=== PATIENT | female | born 1955 | race Caucasian/White ===

== ENCOUNTER 2016-10-07 18:21 | Emergency (ER) | payer MEDICAID, MEDICARE ==
[~2016-10-07] VITALS: Ht 154.9 cm; Wt 110.0 kg
[~2016-10-07 18:21] MED LIST: ASPI81TA82 PO; DULO20 PO; HYDR-2768 PO; HYDR10TA16 PO; LEVO50TA4 PO; LISI-363 PO
[2016-10-07 18:25] VITALS: BP 183/87; PULSE 78; RESP 20; TEMP 97.3; O2SAT 98
--- NOTE | 2016-10-07 18:56 | PD ---
HPI Chief Complaint: Injury Time Seen by Provider: 18:48 Travel History International Travel<30 days: No Contact w/Intl Traveler<30days: No Traveled to known affect area: No History of Present Illness HPI 61-year-old female presents to the emergency Department with complaint of left lateral ankle pain 6 months. Denies new or recent injury. She said she injured it somehow 6 months ago and it has never gotten better she reports swelling and pain. Pain is constant. Pain is worse with walking and weightbearing. Pain is also aggravated with elevating the foot. Denies paresthesias, loss of sensation to the affected extremity. Denies fever, chills , nausea, vomiting. Has tried taking Motrin with no relief of pain. No known allergies. History of hypertension. No other modifying factors or associated signs and symptoms. PFSH Past Medical History Anxiety: Yes Depression: Yes Heart Rhythm Problems: Yes Cardiac Catheterization: Yes Cardiovascular Problems: Yes High Cholesterol: Yes Congestive Heart Failure: Yes (new diag from prev admission 11/24/15) Diabetes: No Gastrointestinal Disorders: Yes (GALLSTONES) Headaches: Yes Hypertension: Yes Inguinal Hernia: Yes Respiratory: Yes (ASTHMA) Pancreatitis: Yes Sleep Apnea: Yes Thyroid Disease: Yes ?: Not : 3 Para: 2 Tubal Ligation: Yes Past Surgical History Joint Replacement: Yes (BILATERAL KNEE REPLACEMENT) Other Surgery: Yes (SINUS SURGERY) Social History Alcohol Use: No Tobacco Use: No Substance Use: No Allergies-Medications (Allergen,Severity, Reaction): Coded Allergies: No Known Allergies (Unverified , 10/07/16) Reported Meds & Prescriptions Reported Meds & Active Scripts Active Hctz (Hydrochlorothiazide) 25 Mg Tab 25 Mg PO DAILY Levothyroxine 50 mcg (Levothyroxine Sodium) 50 Mcg Tab 50 Mcg PO DAILY Reported Cymbalta (Duloxetine HCl) 20 Mg Cap 20 Mg PO DAILY Aspir-81 (Aspirin) 81 Mg Tab 81 Mg PO DAILY Lortab 10/500 (Acetaminophen/Hydrocodone Bitart) 10 Mg/500 Mg Tab 1 Tab PO Q6HPRN FOR PAIN Lisinopril 20 mg (Lisinopril) 20 Mg Tab 20 Mg PO DAILY Review of Systems Except as stated in HPI: all other systems reviewed are Neg Physical Exam Narrative GENERAL: Well-nourished, well-developed female patient, in no acute distress SKIN: Warm and dry. HEAD: Atraumatic. Normocephalic. EYES: Pupils equal and round. No scleral icterus. No injection or drainage. ENT: Mucosa pink and moist. Airway patent. NECK: Trachea midline. CARDIOVASCULAR: Regular rate. RESPIRATORY: No accessory muscle use. MUSCULOSKELETAL: Left ankle with point tenderness on palpation to the lateral malleolar zone; ankle is with mild edema and without erythema; no obvious deformity. Left lower extremity supple and non-tense with 2+ pedal pulses and sensory intact and without erythema or edema. No obvious deformities. No clubbing. No cyanosis. No edema. NEUROLOGICAL: Awake and alert. Oriented 3. No obvious cranial nerve deficits. Motor grossly within normal limits. Normal speech. PSYCHIATRIC: Appropriate mood and affect; insight and judgment normal. Data Data Last Documented VS Vital Signs Date Time Temp Pulse Resp B/P Pulse Ox O2 Delivery O2 Flow Rate FiO2 10/07/16 18:25 97.3 78 20 183/87 98 MDM Medical Decision Making Medical Screen Exam Complete: Yes Emergency Medical Condition: Yes Medical Record Reviewed: Yes Differential Diagnosis Ankle pain, heel spurs, strain Narrative Course 61-year-old female with left ankle pain 6 months after an apparent injury. Denies new or recent injury. Has had continued pain without improvement after injury 6 months ago. Left lower x-ray supple and non-tense with 2+ pedal pulse and sensory intact without erythema or edema. Left ankle x-ray ordered. 1900: Dennis Magaña, PAC, assumed patient care at this time. Report given. See his note for patient disposition. Elizabeth Wilhelm Oct 07, 2016 18:55
[2016-10-07] MEDS ORDERED: DICL75TA PO (19:19)
--- NOTE | 2016-10-07 19:21 | RADRPT ---
EXAM DATE/TIME: 10/07/2016 19:04 [facility] COMPARISON: No previous studies available for comparison. INDICATIONS : Left ankle pain, no trauma. MEDICAL HISTORY : Hypertension. Congestive heart failure. Asthma. SURGICAL HISTORY : None. ENCOUNTER: Initial ACUITY: 2 months PAIN SCORE: 8/10 LOCATION: Left lateral ankle. FINDINGS: There is diffuse soft tissue swelling/subcutaneous edema. No radiopaque foreign body. There is no fra cture or subluxation seen in the left ankle. Mild to moderate osteoarthritis noted of the ankle joint and the subtalar joint. Large posterior process of the talus. There is also a moderate to large heel spur. Moderate-sized ent hesophyte seen of the Achilles insertion. CONCLUSION: 1. Nonspecific soft tissue swelling. No fracture or other acute bony abnormality. 2. Chronic findings as above. Tom Valdez MD on October 07, 2016 at 19:18 Board Certified Radiologist. This report was verified electronically.
--- NOTE | 2016-10-07 19:21 | PD ---
Physical Exam Date Seen by Provider: Oct 07, 2016 Time Seen by Provider: 19:19 Data Data Last Documented VS Vital Signs Date Time Temp Pulse Resp B/P Pulse Ox O2 Delivery O2 Flow Rate FiO2 10/07/16 18:25 97.3 78 20 183/87 98 Orders Ankle, Complete ([id number]) (10/07/16 18:48) Splint Or Brace Apply/Monitor (10/07/16 19:18) Crutches (10/07/16 19:18) MDM Medical Record Reviewed: Yes Supervised Visit with GILLES: No Interpretation(s) Left ankle: Negative for fracture. Positive degenerative changes Differential Diagnosis MDM: High Differential diagnoses: Fracture, sprain, strain, dislocation, contusion, neurovascular injury Narrative Course This is left ankle sprain, arthritis Saqib wrap, crutches and diclofenac Diagnosis Primary Impression: Left ankle sprain Qualified Code: S93.402A - Sprain of left ankle, unspecified ligament, initial encounter Additional Impression: Osteoarthritis Qualified Code: M19.079 - Primary osteoarthritis of ankle, unspecified laterality Patient Instructions: General Instructions Additional Instruction: Rest. Elevation. Ice packs for the next 3 days. Saqib wrap and crutches. No weight-bearing and then progress to weight-bearing as tolerated. Medications as directed Follow-up with an orthopedist or your doctor in one week. Return to the ER if any problems Med/Other Pt SpecificInfo: Prescription(s) given Scripts Diclofenac Sodium DR 75 Mg Tabdr75 Mg PO BID #20 TAB Prov:Russell Haley MD 10/07/16 Disposition: 01 DISCHARGE HOME Condition: Stable Flaquito Malcolm Oct 07, 2016 19:21
== END 2016-10-07 19:30 | disposition home or self-care (01) ==
LOC: NEPB 18:21
DX: S93.402A Sprain of unspecified ligament of left ankle, initial encounter (principal); F41.8 Other specified anxiety disorders; E78.00 Pure hypercholesterolemia, unspecified; I50.9 Heart failure, unspecified; I10 Essential (primary) hypertension; M19.079 Primary osteoarthritis, unspecified ankle and foot; X58.XXXD Exposure to other specified factors, subsequent encounter
CPT/HCPCS: 73610; 99283; E0113

== ENCOUNTER 2016-10-12 22:29 | Emergency (ER) | payer MEDICAID ==
[~2016-10-12] VITALS: Ht 154.9 cm; Wt 109.5 kg
[~2016-10-12 22:29] MED LIST changes: -ASPI81TA82 PO; +DICL75TA PO; -DULO20 PO; -HYDR-2768 PO; -HYDR10TA16 PO; -LEVO50TA4 PO; -LISI-363 PO
[2016-10-12 22:31] VITALS: BP 168/80; PULSE 107; RESP 20; TEMP 98.1; O2SAT 97
--- NOTE | 2016-10-12 22:55 | PD ---
HPI Chief Complaint: Anxiety Time Seen by Provider: 22:55 Travel History International Travel<30 days: No Contact w/Intl Traveler<30days: No Traveled to known affect area: No History of Present Illness HPI 61 year-old female history of hypertension, anxiety, depression, presents to the emergency department requesting a refill of her Cymbalta. Patient states that she ran out 3 days ago and has not had a pill since then. She reports feeling increasingly anxious. She has had headaches. She has felt tremulous. She states that since stopping the medication she does not feel like herself. Denies any head trauma. No focal deficits weakness. No chest or tightness. No other symptoms to report. Patient does state that she has an appointment with her primary care provider tomorrow and if weakly give her something to get through the night, she would greatly appreciate it. PFSH Past Medical History Asthma: Yes Anxiety: Yes Depression: Yes Heart Rhythm Problems: Yes Cardiac Catheterization: Yes Cardiovascular Problems: Yes High Cholesterol: Yes Congestive Heart Failure: Yes (new diag from prev admission 11/24/15) Diabetes: No Diminished Hearing: No Gastrointestinal Disorders: Yes (GALLSTONES) Headaches: Yes Hypertension: Yes Inguinal Hernia: Yes Respiratory: Yes (ASTHMA) Pancreatitis: Yes Sleep Apnea: Yes Thyroid Disease: Yes : 3 Para: 2 Tubal Ligation: Yes Past Surgical History Joint Replacement: Yes (BILATERAL KNEE REPLACEMENT) Other Surgery: Yes (SINUS SURGERY) Social History Alcohol Use: No Tobacco Use: No Substance Use: No Allergies-Medications (Allergen,Severity, Reaction): Coded Allergies: No Known Allergies (Unverified , 10/12/16) Reported Meds & Prescriptions Reported Meds & Active Scripts Active Cymbalta DR (Duloxetine HCl) 30 Mg Capdr 30 Mg PO DAILY Diclofenac Sodium DR (Diclofenac Sodium) 75 Mg Tabdr 75 Mg PO BID Review of Systems Except as stated in HPI: all other systems reviewed are Neg Physical Exam Narrative GENERAL: Well-nourished female patient, ambulatory no acute distress SKIN: Warm and dry. HEAD: Atraumatic. Normocephalic. EYES: Pupils equal and round. No scleral icterus. No injection or drainage. ENT: No nasal bleeding or discharge. Mucous membranes pink and moist. NECK: Trachea midline. No JVD. CARDIOVASCULAR: Regular rate and rhythm. No murmur appreciated. RESPIRATORY: No accessory muscle use. Clear to auscultation. Breath sounds equal bilaterally. GASTROINTESTINAL: Abdomen soft, non-tender, nondistended. Hepatic and splenic margins not palpable. MUSCULOSKELETAL: No obvious deformities. No clubbing. No cyanosis. No edema. NEUROLOGICAL: Awake and alert. No obvious cranial nerve deficits. Motor grossly within normal limits. Normal speech. Data Data Last Documented VS Vital Signs Date Time Temp Pulse Resp B/P Pulse Ox O2 Delivery O2 Flow Rate FiO2 10/12/16 22:31 98.1 107 20 168/80 97 Room Air Orders Dullewis Horta (Cymbalta Dr) (10/12/16 23:00) Electrocardiogram (10/12/16 ) MDM Medical Decision Making Medical Screen Exam Complete: Yes Emergency Medical Condition: Yes Medical Record Reviewed: Yes Differential Diagnosis SSRI withdrawal versus liquid abnormality versus intracranial etiology versus anxiety Narrative Course 61-year-old female presents to emergency department for evaluation and medication refill. Patient appears without distress. There are no focal deficits or weakness. Patient was given a dose of her Cymbalta here and I have offered to give her a prescription outpatient. I have discussed the patient other possible etiologies of her symptoms besides stopping the medication. I have advised that before with CT imaging of the brain. Patient states that she truly believes this is from stopping her medication and does not want to go for CT right now. She agrees to return immediately with any acute worsening of symptoms. Patient is competent. She has a daughter at bedside. I'm comfortable sending her home with prescription for Cymbalta to return immediately with any worsening of symptoms. EKG was done with normal sinus rhythm of 73 bpm. Diagnosis Primary Impression: On SSRI therapy Additional Impressions: Withdrawal complaint Medication refill Referrals: Primary Care Physician Patient Instructions: Depression (ED), General Instructions Additional Instructions: It is important that you keep your appointment with your primary care provider and keep current on your medications Do not ever stop your Cymbalta or other SSRI abruptly Return immediately to the emergency department with any acute worsening of symptoms Med/Other Pt SpecificInfo: Prescription(s) given Scripts Duloxetine (Cymbalta DR)30 Mg Capdr30 Mg PO DAILY #30 CAP Ref 0 Prov:Sandra Tillman 10/12/16 Disposition: DISCHARGE HOME Condition: Stable Sandra Tillman Oct 12, 2016 22:55
[2016-10-12] MEDS ORDERED: DULoxetine HCl DR 30 MG CAP PO ONE (23:00)
[2016-10-12] MEDS ORDERED: CYMB30CA PO (23:17)
--- NOTE | 2016-10-13 13:36 | EKG ---
Date Performed: 10/12/2016 Time Performed: 23:05:42 PTAGE: 61 years EKG: Sinus rhythm NORMAL ECG Compared to prior tracing no significant change PREVIOUS TRACING 12/31/2015 07.31.14 DOCTOR: Aaron Jones Interpretating Date/Time 10/13/2016 13:34:26
== END 2016-10-12 23:54 | disposition home or self-care (01) ==
LOC: NEPA 22:29
DX: F41.9 Anxiety disorder, unspecified (principal); I10 Essential (primary) hypertension; Z76.0 Encounter for issue of repeat prescription
CPT/HCPCS: 93005

== ENCOUNTER 2017-02-15 23:24 | Emergency (ER) | payer MEDICAID ==
[~2017-02-15] VITALS: Ht 154.9 cm; Wt 110.0 kg
[~2017-02-15 23:24] MED LIST changes: +CYMB30CA PO
[2017-02-15 23:38] VITALS: BP 151/66; PULSE 95; RESP 18; TEMP 98.3; O2SAT 98
[2017-02-15] MEDS ORDERED: CYMB30CA PO (23:51)
[2017-02-15] MEDS ORDERED: LISI-515 PO (23:51)
[2017-02-15] MEDS ORDERED: ASPI81CH CHEW (23:51)
[2017-02-15] MEDS ORDERED: subutex PO (23:51)
[2017-02-15] MEDS ORDERED: PROZ20CA11 PO (23:51)
[2017-02-16] MEDS ORDERED: SODIUM CHLORIDE 0.9% FLUSH 10 ML FLUSH IVF PRN
[2017-02-16 00:10] VITALS: BP 156/77; RESP 16; O2SAT 97
--- NOTE | 2017-02-16 00:19 | RADRPT ---
EXAM DATE/TIME: 02/16/2017 00:16 [facility] COMPARISON: CHEST SINGLE AP, December 31, 2015, 1:43. INDICATIONS : Shortness of breath MEDICAL HISTORY : Hypertension. Congestive heart failure. SURGICAL HISTORY : Angioplasty. Tubal ligation. Total knee replacement, left. ENCOUNTER: Initial ACUITY: 1 day PAIN SCORE: 8/10 LOCATION: Bilateral chest FINDINGS: A single view of the chest demonstrates the lungs to be symmetrically aerated without evidence of mas s, infiltrate or effusion. The cardiomediastinal contours are unremarkable. Osseous structures are intact. CONCLUSION: No acute disease. Alan Mai MD on February 16, 2017 at 0:18 Board Certified Radiologist. This report was verified electronically.
--- NOTE | 2017-02-16 00:30 | RADRPT ---
EXAM DATE/TIME: 02/16/2017 00:19 [facility] COMPARISON: No previous studies available for comparison. INDICATIONS : Tingling right side of body; hypertensive headache. RADIATION DOSE: 40.38 CTDIvol (mGy) MEDICAL HISTORY : Hypertension. Cardiovascular disease Pancreatitis.Asthma. SURGICAL HISTORY : Tubal ligation. Right knee surgery. ENCOUNTER: Initial ACUITY: 1 day PAIN SCALE: 0/10 LOCATION: cranial TECHNIQUE: Multiple contiguous axial images were obtained of the head. Using automated exposure control and adj ustment of the mA and/or kV according to patient size, radiation dose was kept as low as reasonably a chievable to obtain optimal diagnostic quality images. DICOM format image data is available electro nically for review and comparison. FINDINGS: CEREBRUM: The ventricles are normal for age. No evidence of midline shift, mass lesion, hemorrhage or acute in farction. No extra-axial fluid collections are seen. POSTERIOR FOSSA: The cerebellum and brainstem are intact. The 4th ventricle is midline. The cerebellopontine angle i s unremarkable. EXTRACRANIAL: The visualized portion of the orbits is intact. SKULL: The calvaria is intact. No evidence of skull fracture. CONCLUSION: No acute intracranial disease. Alan Mai MD on February 16, 2017 at 0:28 Board Certified Radiologist. This report was verified electronically.
[2017-02-16 00:39] LABS: AUTOMATED NEUTROPHIL # 5.2 TH/MM3 (1.8-7.7); BASOPHIL # 0.1 TH/MM3 (0-0.2); BASOPHIL % 0.7 % (0.0-2.0); EOSINOPHIL # 0.6 TH/MM3 (0-0.4); EOSINOPHIL % 6.2 % (0.0-4.0); HEMATOCRIT 32.1 % (35.0-46.0); HEMO FLAGS DIFF FINAL; LYMPH % 29.8 % (9.0-44.0); LYMPHOCYTE # 2.7 TH/MM3 (1.0-4.8); MEAN CELL VOLUME 75.1 FL (80.0-100.0); MEAN CORPUSCULAR HGB CONC 31.9 % (32.0-36.0); NEUT % 57.3 % (16.0-70.0); PLATELET COUNT 239 TH/MM3 (150-450); RED BLOOD COUNT 4.28 MIL/MM3 (4.00-5.30); RED CELL DISTRIBUTION WIDTH 15.9 % (11.6-17.2); WHITE BLOOD COUNT 9.1 TH/MM3 (4.0-11.0)
[2017-02-16 00:50] LABS: APTT (PATIENT) 28.4 SEC (24.3-30.1); INTERNATIONAL NORMALIZED RATIO 0.9 RATIO; PROTHROMBIN TIME - PATIENT 10.4 SEC (9.8-11.6)
[2017-02-16 01:02] LABS: ALT (GPT) 37 U/L (10-53); ANION GAP 4 MEQ/L (5-15); AST (GOT) 25 U/L (15-37); BICARBONATE 30.1 MEQ/L (21.0-32.0); BLOOD UREA NITROGEN 23 MG/DL (7-18); CHLORIDE 103 MEQ/L (98-107); GLOMERULAR FILTRATION RATE 52 ML/MIN (>89); POTASSIUM 3.8 MEQ/L (3.5-5.1); SODIUM (NA) 137 MEQ/L (136-145)
[2017-02-16 01:06] LABS: ALKALINE PHOSPHATASE 116 U/L (45-117); CREATINE KINASE 158 U/L (26-192); TOTAL BILIRUBIN ADULT 0.2 MG/DL (0.2-1.0)
--- NOTE | 2017-02-16 01:13 | PD ---
HPI Chief Complaint: Chest Pain Time Seen by Provider: 23:57 Travel History International Travel<30 days: No Contact w/Intl Traveler<30days: No Traveled to known affect area: No History of Present Illness HPI The patient is a 61 year old female who presents to the [facility] [address] emergency department with a history of awakening shortly after falling asleep with a burning sensation in her lower abdomen/groin area. She reports that she got up and the pain seemed to radiate up into her chest. She reports that she also had 2 episodes of indigestion today which is new for her. The patient denies having any prior history of coronary artery disease. She does have a history of a heart murmur and mitral valve prolapse. She reports that she underwent a heart catheterization approximately a year ago at [facility] that showed no evidence of blockages. The patient reports that she checked her blood pressure when she began to have these symptoms and noted that it was 238/108 with a pulse of 138. She reports feeling anxious, therefore she called ambulance services. The patient denies having any other symptoms at this time. She reports that the chest pain and abdominal pain has resolved. She reports on review of systems that 2 weeks ago she did start having urinary frequency and urgency. She denies having any dysuria. The patient reports that she has been dealing with some left foot pain from a prior injury, as well as arthritic pain in her hips. She reports that she was recently prescribed a month ago ibuprofen 800 mg. She reports that she has been taking this 3 times per day. She has otherwise been taking her blood pressure medication as prescribed. The patient denies any recent fevers, cough, congestion, neck pain, vomiting, diarrhea, weakness of her extremities, facial droop, difficulty with word finding ability, dizziness, or vision changes. The patient reports that she did have some tingling in her extremities and she felt anxious, however this resolved. [facility] Past Medical History Narrative Medical The patient's past medical history is significant for MVP, heart cath negative for blockages [address] [facility], anxiety disorder, hypertension, arthritis for pain (Ibuprofen 800mg tid)- for a month, history of hyperlipidemia , asthma, pancreatitis, depression, hypothyroid disorder, history of gallstones. PCP: Dr. Barnes. Hx Anticoagulant Therapy: Yes (2 baby aspirin BID) Asthma: Yes Anxiety: Yes Depression: Yes Heart Rhythm Problems: Yes Cardiac Catheterization: Yes Cardiovascular Problems: Yes (HTN, Mitral valve prolapse) High Cholesterol: Yes Congestive Heart Failure: Yes (new diag from prev admission 11/24/15) Diabetes: No Diminished Hearing: No Gastrointestinal Disorders: Yes (GALLSTONES) Headaches: Yes Hypertension: Yes Inguinal Hernia: Yes Respiratory: Yes (Asthma) Pancreatitis: Yes Sleep Apnea: Yes Thyroid Disease: Yes ?: Not : 3 Para: 2 Tubal Ligation: Yes Past Surgical History Narrative Surgical The patient's past surgical history is significant for sinus surgery, bilateral tubal ligation, cardiac catheterization without any stenting or angioplasty, bilateral knee replacements. Joint Replacement: Yes (BILATERAL KNEE REPLACEMENT) Other Surgery: Yes (SINUS SURGERY) Social History Alcohol Use: No Tobacco Use: No Substance Use: No Allergies-Medications (Allergen,Severity, Reaction): Coded Allergies: No Known Allergies (Unverified , 10/12/16) Reported Meds & Prescriptions Reported Meds & Active Scripts Active Macrobid (Nitrofurantoin Monoh/Nitrofur Macro) 100 Mg Cap 100 Mg PO BID 7 Days Famotidine 20 Mg Tab 20 Mg PO BID Cymbalta DR (Duloxetine HCl) 30 Mg Capdr 30 Mg PO DAILY Diclofenac Sodium DR (Diclofenac Sodium) 75 Mg Tabdr 75 Mg PO BID Reported Aspirin 81 Mg Chew 162 Mg CHEW BID Cymbalta DR (Duloxetine HCl) 30 Mg Capdr 30 Mg PO EVERY OTHER DAY [subutex] 8.2 Mg PO DAILY Prozac (Fluoxetine HCl) 20 Mg Cap 20 Mg PO BID Lisinopril 20 Mg Tab 20 Mg PO BID Review of Systems Except as stated in HPI: all other systems reviewed are Neg General / Constitutional: No: Fever Eyes: No: Visual changes HENT: Positive: Headaches, No: Neck Stiffness, Neck Pain Cardiovascular: Positive: Chest Pain or Discomfort Respiratory: No: Shortness of Breath Gastrointestinal: Positive: Abdominal Pain, Indigestion, No: Nausea, Vomiting , Diarrhea, Hematochezia, Changes in Bowel Habits, Loss of Appetite Genitourinary: Positive: Urgency, Frequency, No: Dysuria Musculoskeletal: No: Pain Skin: No Rash Neurologic: Positive: Headache, Paresthesia, No: Weakness, Focal Abnormalities , Change in Mentation, Slurred Speech Psychiatric: No: Depression Endocrine: No: Polydipsia Hematologic/Lymphatic: No: Easy Bruising Physical Exam Narrative General: The patient is a well-developed well-nourished female in no acute distress. Head and Neck exam: Head is normocephalic atraumatic. Eyes: EOMI, pupils are equal round and reactive to light. Nose: Midline septum with pink mucous membranes Mouth: Dentition unremarkable. Moist mucus membranes. Posterior oropharynx is not erythematous. No tonsillar hypertrophy. Uvula midline. Airway patent. Neck: No palpable lymphadenopathy. No nuchal rigidity. No thyromegaly. Cardiovascular: Regular rate and rhythm without murmurs, gallops, or rubs. No pulse deficit to the extremities and simultaneous auscultation and palpation of the radial artery. Lungs: Clear to auscultation bilaterally. No wheezes, rhonchi, or rales. Abdomen: Soft, with midepigastric abdominal discomfort on palpation, no other tenderness on palpation of the other quadrants of the abdomen. No guarding, rebound, or rigidity. Negative [place] sign. Normal bowel sounds are audible. No tenderness on palpation of McBurney's point. Extremities: No clubbing or cyanosis. The patient has trace to 1+ edema bilateral lower extremities which she reports is chronic and no worse than usual. 2+ pulses in all 4 extremities. No calf tenderness on palpation. Back: No costovertebral angle tenderness to palpation. Neurologic Exam: Cranial nerves 2-12 were intact on exam. Strength is 5/5 in all 4 extremities. No sensory deficits noted. Skin Exam: No rash noted. Intact skin that is warm and dry. Data Data Last Documented VS Vital Signs Date Time Temp Pulse Resp B/P Pulse Ox O2 Delivery O2 Flow Rate FiO2 02/16/17 00:10 156/77 02/16/17 00:10 97 Room Air 02/16/17 00:10 16 02/15/17 23:38 98.3 95 Orders Electrocardiogram (02/15/17 23:58) B-Type Natriuretic Peptide (02/15/17 23:58) Ckmb (Isoenzyme) Profile (02/15/17 23:58) Complete Blood Count With Diff (02/15/17 23:58) Comprehensive Metabolic Panel (02/15/17 23:58) Magnesium (Mg) (02/15/17 23:58) Prothrombin Time / Inr (Pt) (02/15/17 23:58) Act Partial Throm Time (Ptt) (02/15/17 23:58) Troponin I (02/15/17 23:58) Lipase (02/15/17 23:58) Chest, Single Ap (02/15/17 23:58) Ecg Monitoring (02/15/17 23:58) Bilateral Bp Monitoring (02/15/17 23:58) Iv Access Insert/Monitor (02/15/17 23:58) Oximetry (02/15/17 23:58) Oxygen Administration (02/15/17 23:58) Sodium Chloride 0.9% Flush (Ns Flush) (02/16/17 00:00) Ct Brain W/O Iv Contrast(Rout) (02/15/17 23:58) CKMB (02/16/17 00:00) CKMB% (02/16/17 00:00) Urinalysis - C+S If Indicated (02/16/17 01:16) Labs Laboratory Tests Test 02/16/17 02/16/17 00:00 01:30 White Blood Count 9.1 TH/MM3 Red Blood Count 4.28 MIL/MM3 Hemoglobin 10.3 GM/DL Hematocrit 32.1 % Mean Corpuscular Volume 75.1 FL Mean Corpuscular Hemoglobin 24.0 PG Mean Corpuscular Hemoglobin 31.9 % Concent Red Cell Distribution Width 15.9 % Platelet Count 239 TH/MM3 Mean Platelet Volume 8.3 FL Neutrophils (%) (Auto) 57.3 % Lymphocytes (%) (Auto) 29.8 % Monocytes (%) (Auto) 6.0 % Eosinophils (%) (Auto) 6.2 % Basophils (%) (Auto) 0.7 % Neutrophils # (Auto) 5.2 TH/MM3 Lymphocytes # (Auto) 2.7 TH/MM3 Monocytes # (Auto) 0.5 TH/MM3 Eosinophils # (Auto) 0.6 TH/MM3 Basophils # (Auto) 0.1 TH/MM3 CBC Comment DIFF FINAL Differential Comment Prothrombin Time 10.4 SEC Prothromb Time International 0.9 RATIO Ratio Activated Partial 28.4 SEC Thromboplast Time Sodium Level 137 MEQ/L Potassium Level 3.8 MEQ/L Chloride Level 103 MEQ/L Carbon Dioxide Level 30.1 MEQ/L Anion Gap 4 MEQ/L Blood Urea Nitrogen 23 MG/DL Creatinine 1.08 MG/DL Estimat Glomerular Filtration 52 ML/MIN Rate Random Glucose 123 MG/DL Calcium Level 8.4 MG/DL Magnesium Level 2.0 MG/DL Total Bilirubin 0.2 MG/DL Aspartate Amino Transf 25 U/L (AST/SGOT) Alanine Aminotransferase 37 U/L (ALT/SGPT) Alkaline Phosphatase 116 U/L Total Creatine Kinase 158 U/L Creatine Kinase MB 5.4 NG/ML Troponin I LESS THAN 0.02 NG/ML B-Type Natriuretic Peptide 2 PG/ML Total Protein 7.5 GM/DL Albumin 3.4 GM/DL Lipase 124 U/L Urine Color YELLOW Urine Turbidity CLEAR Urine pH 5.5 Urine Specific [place] 1.008 Urine Protein NEG mg/dL Urine Glucose (UA) NEG mg/dL Urine Ketones NEG mg/dL Urine Occult Blood NEG Urine Nitrite NEG Urine Bilirubin NEG Urine Urobilinogen LESS THAN 2.0 MG/DL Urine Leukocyte Esterase MOD Urine RBC 1 /hpf Urine WBC 2 /hpf Urine Squamous Epithelial 1 /hpf Cells Urine Transitional Epithelial <1 /hpf Cells Urine Bacteria RARE /hpf Urine Mucus FEW /lpf Microscopic Urinalysis Comment CULT NOT INDICATED MDM Medical Decision Making Medical Screen Exam Complete: Yes Emergency Medical Condition: Yes Medical Record Reviewed: Yes Interpretation(s) Last Impressions Head CT 02/15/172357 Signed Impressions: Service Date/Time: Thursday, February 16, 2017 00:19 - CONCLUSION: No acute intracranial disease. Alan Mai MD Chest X-Ray 02/15/172357 Signed Impressions: Service Date/Time: Thursday, February 16, 2017 00:16 - CONCLUSION: No acute disease. Alan Mai MD Differential Diagnosis Sleep apnea, versus acute coronary syndrome, versus pneumonia, versus anxiety disorder, versus acid reflux related to taking large doses of ibuprofen over the last month, versus peptic ulcer disease, versus gastritis, versus poorly controlled blood pressure. Narrative Course During the course of the patients emergency department visit, the patients history, examination, and differential diagnosis were reviewed with the patient. The patient had IV access obtained and blood work sent for analysis. The patient's present a cardiac catheterization technologist with oximetry and blood pressure monitoring. The patient had an ECG ordered. The patient's ECG shows a sinus rhythm heart rate of 92, no acute ST segment elevation or depression, QRS duration is 94 ms, QTC 434 ms. The patient reportedly took 2 separate doses of 162 mg of aspirin prior to arrival. The patients laboratory studies were reviewed and remarkable for a CBC that shows a white count of 9.1, hemoglobin 10.3, platelets 239 with 6.2 eosinophils , CMP is remarkable for a BUN of 23, creatinine 1.08, glucose 123, calcium 8.4, CPK is 158, troponin I is less than 0.02, BNP is 2, lipase 124, PT PTT within normal limits. Urinalysis shows moderate leukocyte esterase, 1 squamous epithelial cell rare bacteria, given the patient's symptoms regarding urinary tract infection, including urinary frequency and urgency over the last couple weeks the patient will be treated with Macrobid. Radiology studies were reviewed and remarkable for a chest x-ray that shows no acute abnormality. A chest x-ray that shows no acute intracranial abnormality. The patient reportedly had a heart catheterization last year in [facility] that reportedly showed no evidence of coronary artery disease. The patient reports that she has an appointment with her primary care physician today. The patient is instructed to discuss further with her primary care physician discontinuing the ibuprofen and taking an alternative pain medication as this could be causing indigestion as well as elevation of her blood pressure. The patient will be discharged home with a prescription for famotidine. The patient is also encouraged to follow up with her primary care physician to discuss testing for sleep apnea with a sleep study which could also be contributing to her symptoms. The patient is resting comfortably and feels better, is alert and in no distress. The patients results and examination findings were discussed with the patient. The repeat examination is unremarkable and benign. The history, exam, diagnostic testing, and current condition do not suggest any significant pathology to warrant further testing, continued ED treatment, admission, or surgical evaluation at this point. The vital signs have been stable. The patient does not have uncontrollable pain, intractable vomiting, or other significant symptoms. The patient's condition is stable and appropriate for discharge. The patient will pursue further outpatient evaluation with a primary care physician or other designated or consulting physician as indicated in the discharge instructions. The patient expressed understanding and was agreeable with this plan. Diagnosis Primary Impression: Atypical chest pain Additional Impressions: Acid indigestion Urinary tract infection Qualified Code: N30.00 - Acute cystitis without hematuria Referrals: Primary Care Physician 1 day Patient Instructions: Chest Pain (ED), General Instructions, Indigestion (ED), Urinary Tract Infection in Women (ED) Med/Other Pt SpecificInfo: Prescription(s) given Scripts Nitrofurantoin Monohydrate Macrocrystals (Macrobid)100 Mg Lav410 Mg PO BID 7 Days Ref 0 Prov:Lucero Caro MD 02/16/17 Famotidine 20 Mg Tab20 Mg PO BID #60 TAB Ref 0 Prov:Lucero Caro MD 02/16/17 Disposition: 01 DISCHARGE HOME Condition: Stable Lucero Caro MD Feb 16, 2017 01:13
[2017-02-16 01:18] LABS: CKMB 5.4 NG/ML (0.5-3.6)
[2017-02-16] MEDS ORDERED: FAMO20TA2 PO (01:31)
[2017-02-16 01:44] LABS: BACTERIA, URINE RARE /hpf; BLOOD, URINE NEG (NEG); GLUCOSE,URINE NEG (NEG); KETONE, URINE NEG (NEG); MUCUS URINE FEW /lpf (OCC); NITRITE,URINE NEG (NEG); PH, URINE 5.5 (5.0-8.5); SQUAMOUS EPITHELIAL CELL URINE 1 /hpf (0-5); TRANSITIONAL EPI CELLS, URINE <1 /hpf; URINE COLOR YELLOW (YELLW/STRAW)
[2017-02-16 01:45] LABS: COMMENT (UR) CULT NOT INDICATED; CULTURE IF INDICATED CULT NOT INDICATED
[2017-02-16] MEDS ORDERED: MACR100C2 PO (02:08)
--- NOTE | 2017-02-16 14:34 | EKG ---
Date Performed: 02/15/2017 Time Performed: 23:43:09 PTAGE: 61 years EKG: Sinus rhythm Since previous tracing, no significant change noted NORMAL ECG PREVIOUS TRACING : 10/12/2016 23.05 DOCTOR: Abram Zamora Interpretating Date/Time 02/16/2017 14:32:51
== END 2017-02-16 02:56 | disposition home or self-care (01) ==
LOC: NEPC 23:24
DX: R07.89 Other chest pain (principal); K30 Functional dyspepsia; N30.00 Acute cystitis without hematuria; I10 Essential (primary) hypertension; I50.9 Heart failure, unspecified; J45.909 Unspecified asthma, uncomplicated
CPT/HCPCS: 70450; 71010; 80053; 81001; 82550; 82552; 83690; 83735; 83880; 84484; 85025; 85610; 85730; 93005; 99285

== ENCOUNTER 2017-04-12 14:00 | Emergency (ER) | payer MEDICAID ==
[~2017-04-12 14:00] MED LIST changes: +ASPI81CH CHEW; +FAMO20TA2 PO; +LISI-515 PO; +MACR100C2 PO; +PROZ20CA11 PO; +subutex PO
[2017-04-12 14:04] VITALS: BP 159/73; PULSE 80; RESP 20; TEMP 98.9; O2SAT 99
--- NOTE | 2017-04-12 14:35 | PD ---
HPI Chief Complaint: Injury Time Seen by Provider: 14:31 Travel History International Travel<30 days: No Contact w/Intl Traveler<30days: No Traveled to known affect area: No History of Present Illness HPI 61-year-old female presents to the emergency department requesting for pain medication for left ankle pain. She is also requesting a refill on her fluoxetine, she took the last pill today. She reports fracturing it 2 years ago and having arthritic changes to the ankle. She says if she walks too much the ankle becomes painful. It has been painful since last night. She denies paresthesias, loss of sensation, decreased range of motion, decreased strength to the affected extremity. Reports being ambulatory with a limp to the left lower extremity. Denies fever, vomiting. Denies homicidal or suicidal ideations. No known allergies. Symptoms are mild in severity. Has no medical complaints. No other modifying factors or associated signs and symptoms. History Social History Alcohol Use: No Tobacco Use: No Allergies-Medications (Allergen,Severity, Reaction): Coded Allergies: No Known Allergies (Unverified , 04/12/17) Reported Meds & Prescriptions Reported Meds & Active Scripts Active Macrobid (Nitrofurantoin Monoh/Nitrofur Macro) 100 Mg Cap 100 Mg PO BID 7 Days Famotidine 20 Mg Tab 20 Mg PO BID Cymbalta DR (Duloxetine HCl) 30 Mg Capdr 30 Mg PO DAILY Diclofenac Sodium DR (Diclofenac Sodium) 75 Mg Tabdr 75 Mg PO BID Reported Aspirin 81 Mg Chew 162 Mg CHEW BID Cymbalta DR (Duloxetine HCl) 30 Mg Capdr 30 Mg PO EVERY OTHER DAY [subutex] 8.2 Mg PO DAILY Prozac (Fluoxetine HCl) 20 Mg Cap 20 Mg PO BID Lisinopril 20 Mg Tab 20 Mg PO BID Review of Systems Except as stated in HPI: all other systems reviewed are Neg Physical Exam Narrative GENERAL: Well-nourished, well-developed female patient, in no acute distress SKIN: Warm and dry. HEAD: Atraumatic. Normocephalic. EYES: Pupils equal and round. No scleral icterus. No injection or drainage. ENT: Mucosa pink and moist. Airway patent. NECK: Trachea midline. CARDIOVASCULAR: Regular rate. RESPIRATORY: No accessory muscle use. GASTROINTESTINAL: Obese. MUSCULOSKELETAL: Left ankle with point tenderness to the lateral aspect; without erythema, edema, ecchymosis; no obvious deformity; 2+ pedal pulse; sensory intact. Left lower extremity supple and non-tense with 2+ pupils and sensory intact without erythema or edema. No obvious deformities. No clubbing. No cyanosis. No edema. NEUROLOGICAL: Awake and alert. Oriented 3. No obvious cranial nerve deficits. Motor grossly within normal limits. Normal speech. PSYCHIATRIC: Appropriate mood and affect; insight and judgment normal. Data Data Last Documented VS Vital Signs Date Time Temp Pulse Resp B/P (MAP) Pulse Ox O2 Delivery O2 Flow Rate FiO2 04/12/17 14:04 98.9 80 20 159/73 (101) 99 Room Air MDM Medical Screen Exam Complete: Yes Emergency Medical Condition: No Differential Diagnosis Left ankle pain, medication refill Narrative Course 61-year-old female requesting pain medication for left ankle pain secondary to arthritis after fracturing a 2 years ago. She is also requesting refill on fluoxetine. Says she is in between primary care providers at this time. Has a scheduled appointment with primary care provider on April 25. Vital signs are stable and the patient is stable for outpatient follow-up and treatment. The patient has no urgent or emergent medical complaints. There is no emergent or urgent medical need at this time. I instructed the patient to follow up with their primary care provider. A medical screening exam was performed: At the time of evaluation the presenting medical condition was determined not to be of an emergent nature. The patient was given the option of receiving additional care, but declined. Patient was given options for additional community resources from which to obtain care. The Patient Has Been advised to seek medical attention for their presenting complaint. The patient has been advised to return to the ER at any time if an emergent condition develops. Primary Impression: Encounter for medical screening examination Condition: Stable Elizabeth Wilhelm PLATFORM ENGINEER Apr 12, 2017 14:35
== END 2017-04-12 15:38 | disposition left against medical advice (07) ==
LOC: NEPK 14:00
DX: Z00.00 Encounter for general adult medical examination without abnormal findings (principal); M79.672 Pain in left foot
CPT/HCPCS: 99281

== ENCOUNTER 2017-06-29 22:13 | Emergency (ER) | payer MEDICAID ==
[~2017-06-29 22:13] MED LIST changes: +ASPI-516 CHEW; -ASPI81CH CHEW
[2017-06-29 22:14] VITALS: BP 167/77; PULSE 89; RESP 16; TEMP 98.5; O2SAT 98
--- NOTE | 2017-06-29 23:43 | PD ---
HPI Chief Complaint: Abdominal Pain Time Seen by Provider: 23:41 Travel History International Travel<30 days: No Contact w/Intl Traveler<30days: No Traveled to known affect area: No History of Present Illness HPI The patient is a 61 year old female who presents to the [facility] emergency department with a history of right sided back and abdominal pain that began on Thursday. The back pain and the abdominal pain occur at the same time. It has been coming and going. It is like a knife when it occurs. She denies any aggravating or alleviating factors except moving makes it worse. she denies any heavy lifting or trauma that occurred prior to this. Her last BM was yesterday. No blood in the stool. She denies having any dysuria, hematuria, urinary urgency, or frequency associated with this. She denies having any prior history of kidney stones, however she does have a history of gallstones. She reports that the symptoms are similar to when she had a gallbladder attack in the past. She reports that it was not taken out at that time and she had pancreatitis as well. I review of systems, the patient denies having any known recent fevers, cough, congestion, neck pain, chest pain, shortness of breath, vomiting, diarrhea, or neurologic symptoms. She denies having a primary care physician at this time. PFSH Past Medical History Narrative Medical the patient's past medical history is significant for anxiety and depression, COPD, hypothyroid disorder, hypertension, history of cholelithiasis with pancreatitis,, history of heart murmur. Hx Anticoagulant Therapy: Yes (2 baby aspirin BID) Asthma: Yes Anxiety: Yes Depression: Yes Heart Rhythm Problems: Yes Cardiac Catheterization: Yes Cardiovascular Problems: Yes (HTN) High Cholesterol: Yes Congestive Heart Failure: Yes Diabetes: No Diminished Hearing: No Gastrointestinal Disorders: Yes (GALLSTONES) Headaches: Yes Hypertension: Yes Inguinal Hernia: Yes Respiratory: Yes (Asthma) Pancreatitis: Yes Sleep Apnea: Yes Thyroid Disease: Yes (HYPOTHYROIDISM) : 3 Para: 2 Tubal Ligation: Yes Past Surgical History Narrative Surgical The patient's past surgical history is significant for bilateral knee replacements, sinus surgery, hernia repair. Abdominal Surgery: Yes (HERNIA REPAIR) Joint Replacement: Yes (BILATERAL KNEE REPLACEMENT) Other Surgery: Yes (SINUS SURGERY) Social History Alcohol Use: No Tobacco Use: No Substance Use: No Allergies-Medications (Allergen,Severity, Reaction): Coded Allergies: No Known Allergies (Unverified Adverse Reaction, Unknown, 06/29/17) Reported Meds & Prescriptions Reported Meds & Active Scripts Active Reported Synthroid (Levothyroxine Sodium) 125 Mcg Tab 125 Mcg PO DAILY Aspirin 81 Mg Chew 162 Mg CHEW BID Prozac (Fluoxetine HCl) 20 Mg Cap 60 Mg PO HS Lisinopril 20 Mg Tab 20 Mg PO BID Review of Systems Except as stated in HPI: all other systems reviewed are Neg General / Constitutional: No: Fever Eyes: No: Visual changes HENT: No: Headaches Cardiovascular: No: Chest Pain or Discomfort Respiratory: No: Shortness of Breath Gastrointestinal: Positive: Abdominal Pain, No: Nausea, Vomiting, Diarrhea, Hematemesis, Hematochezia, Constipation, Changes in Bowel Habits, Indigestion, Loss of Appetite Genitourinary: Positive: Flank Pain, No: Urgency, Frequency, Dysuria, Hematuria Musculoskeletal: No: Pain Skin: No Rash Neurologic: No: Weakness, Focal Abnormalities, Change in Mentation, Slurred Speech, Sensory Disturbance Psychiatric: No: Depression Endocrine: No: Polydipsia Hematologic/Lymphatic: No: Easy Bruising Physical Exam Narrative General: The patient is a well-developed well-nourished female in no acute distress. Head and Neck exam: Head is normocephalic atraumatic. Eyes: EOMI, pupils are equal round and reactive to light. Nose: Midline septum with pink mucous membranes Mouth: Dentition unremarkable. Moist mucus membranes. Posterior oropharynx is not erythematous. No tonsillar hypertrophy. Uvula midline. Airway patent. Neck: No palpable lymphadenopathy. No nuchal rigidity. No thyromegaly. Cardiovascular: Regular rate and rhythm with a 2/6 systolic murmur. No gallops or rubs. Lungs: Clear to auscultation bilaterally. No wheezes, rhonchi, or rales. Abdomen: Soft, with tenderness on palpation of the right upper quadrant and midepigastric area of the abdomen. No other tenderness on palpation of the other quadrants of the abdomen. No guarding, rebound, or rigidity. No tenderness on palpation of McBurney's point. Negative Julien's sign. Normal bowel sounds are audible. Extremities: No clubbing or cyanosis, trace pedal edema is noted. 2+ pulses in all 4 extremities. No calf tenderness on palpation. Back: No spinous process tenderness to palpation. Right-sided CVA tenderness is noted on palpation. Neurologic Exam: Grossly nonfocal. Skin Exam: No rash noted. Intact skin that is warm and dry. Data Data Last Documented VS Vital Signs Date Time Temp Pulse Resp B/P (MAP) Pulse Ox O2 Delivery O2 Flow Rate FiO2 06/30/17 00:18 69 18 160/70 (100) 100 Room Air 06/29/17 22:14 98.5 Orders Orders Complete Blood Count With Diff (06/29/17 22:25) Comprehensive Metabolic Panel (06/29/17 22:25) Lipase (06/29/17 22:25) Coag Profile (06/29/17:) Urinalysis - C+S If Indicated (06/29/17:25) Iv Access Insert/Monitor (06/29/17 23:43) Ecg Monitoring (06/29/17 23:43) Oximetry (06/29/17 23:43) Lactic Acid Sepsis Protocol (06/29/17 23:43) Ct Abd/Pel W Iv Contrast(Rout) (06/30/17 00:12) Iohexol 350 Inj (Omnipaque 350 Inj) (06/30/17 01:35) Ceftriaxone Inj (Rocephin Inj) (06/30/17 02:00) Sodium Chlorid 0.9% 500 Ml Inj (Ns 500 M (06/30/17 02:00) Ondansetron Inj (Zofran Inj) (06/30/17 02:00) Ketorolac Inj (Toradol Inj) (06/30/17 02:00) Ed Discharge Order (06/30/17 02:04) Labs Laboratory Tests Test 06/30/17 00:10 White Blood Count 9.8 TH/MM3 Red Blood Count 4.47 MIL/MM3 Hemoglobin 11.5 GM/DL Hematocrit 34.4 % Mean Corpuscular Volume 77.0 FL Mean Corpuscular Hemoglobin 25.8 PG Mean Corpuscular Hemoglobin Concent 33.6 % Red Cell Distribution Width 14.7 % Platelet Count 235 TH/MM3 Mean Platelet Volume 8.1 FL Neutrophils (%) (Auto) 55.4 % Lymphocytes (%) (Auto) 34.3 % Monocytes (%) (Auto) 6.1 % Eosinophils (%) (Auto) 3.6 % Basophils (%) (Auto) 0.6 % Neutrophils # (Auto) 5.4 TH/MM3 Lymphocytes # (Auto) 3.4 TH/MM3 Monocytes # (Auto) 0.6 TH/MM3 Eosinophils # (Auto) 0.4 TH/MM3 Basophils # (Auto) 0.1 TH/MM3 CBC Comment DIFF FINAL Differential Comment Prothrombin Time 10.8 SEC Prothromb Time International Ratio 1.0 RATIO Activated Partial Thromboplast Time 28.3 SEC Urine Color LIGHT-YELLOW Urine Turbidity CLEAR Urine pH 5.5 Urine Specific [place] 1.011 Urine Protein NEG mg/dL Urine Glucose (UA) NEG mg/dL Urine Ketones NEG mg/dL Urine Occult Blood NEG Urine Nitrite NEG Urine Bilirubin NEG Urine Urobilinogen LESS THAN 2.0 MG/DL Urine Leukocyte Esterase MOD Urine RBC 1 /hpf Urine WBC 7 /hpf Urine Squamous Epithelial Cells 1 /hpf Microscopic Urinalysis Comment CULT NOT INDICATED Blood Urea Nitrogen 26 MG/DL Creatinine 1.17 MG/DL Random Glucose 94 MG/DL Total Protein 8.0 GM/DL Albumin 3.7 GM/DL Calcium Level 8.6 MG/DL Alkaline Phosphatase 134 U/L Aspartate Amino Transf (AST/SGOT) 27 U/L Alanine Aminotransferase (ALT/SGPT) 37 U/L Total Bilirubin 0.4 MG/DL Sodium Level 137 MEQ/L Potassium Level 3.9 MEQ/L Chloride Level 102 MEQ/L Carbon Dioxide Level 26.7 MEQ/L Anion Gap 8 MEQ/L Estimat Glomerular Filtration Rate 47 ML/MIN Lactic Acid Level 0.6 mmol/L Lipase 102 U/L MDM Medical Decision Making Medical Screen Exam Complete: Yes Emergency Medical Condition: Yes Medical Record Reviewed: Yes Interpretation(s) Last Impressions Abdomen/Pelvis CT 06/30/17 0012 Signed Impressions: Service Date/Time: Friday, June 30, 2017 01:23 - CONCLUSION: Normal examination. Surgical clips left inguinal region related to previous surgery. I did not see a normal or abnormal appendix Clayton Oliver MD Differential Diagnosis Kidney stone, versus musculoskeletal strain, versus biliary colic, versus acute cholecystitis, versus pancreatitis Narrative Course During the course of the patients emergency department visit, the patients history, examination, and differential diagnosis were reviewed with the patient. The patient was placed on a back panel padder with oximetry and frequent blood pressure monitoring. The patient had IV access obtained and blood work sent for analysis. The patient was initially provided normal saline 500 mL bolus 1, Zofran 4 mg IV for nausea, Toradol 15 mg IV for pain. The patients laboratory studies were reviewed and remarkable for a CMP that shows a BUN of 26, creatinine 1.17, GFR 47, alkaline phosphatase 134, lipase 102 , lactic acid 0.6, CBC shows a white count of 9.8, hemoglobin 11.5, platelets 235 with a normal differential, PT 10.8, PTT 28.3, urinalysis shows moderate leukocyte esterase, 7 WBCs only 1 squamous epithelial cell. This is suspicious for a urinary tract infection given the patient's flank pain. The patient was given Rocephin 1 g IV. Radiology studies were reviewed and remarkable for a CT scan of the abdomen and pelvis that shows no abnormality involving the biliary system. No acute abnormality of the kidneys. Essentially normal examination according to the reading radiologist. The patient will be discharged home with a prescription for Cipro and pain medication. The patient is instructed regarding the importance of close follow- up with a primary care physician as an outpatient. The patient is resting comfortably and feels better, is alert and in no distress. The patients results and examination findings were discussed with the patient. The repeat examination is unremarkable and benign. The history, exam, diagnostic testing, and current condition do not suggest any significant pathology to warrant further testing, continued ED treatment, admission, or surgical evaluation at this point. The vital signs have been stable. The patient does not have uncontrollable pain, intractable vomiting, or other significant symptoms. The patient's condition is stable and appropriate for discharge. The patient will pursue further outpatient evaluation with a primary care physician or other designated or consulting physician as indicated in the discharge instructions. The patient expressed understanding and was agreeable with this plan. Diagnosis Primary Impression: Abdominal pain Qualified Codes: R10.11 - Right upper quadrant pain Additional Impressions: Right flank pain Urinary tract infection Qualified Codes: N39.0 - Urinary tract infection, site not specified Referrals: [facility] 3 days Patient Instructions: Abdominal Pain (ED), Flank Pain (ED), General Instructions, Urinary Tract Infection in Women (ED) Med/Other Pt SpecificInfo: Prescription(s) given Scripts Ciprofloxacin (Cipro) 500 Mg Tab 500 MG PO BID for Infection for 7 Days, #14 TAB 0 Refills Prov: Lucero Caro MD 06/30/17 Hydrocodone-Acetaminophen (Hydrocodone-Acetaminophen) 5-325 mg Tab 1 TAB PO Q6H Y for PAIN, #6 TAB 0 Refills Prov: Lucero Caro MD 06/30/17 Disposition: 01 DISCHARGE HOME Condition: Stable Lucero Caro MD Jun 29, 2017 23:43
[2017-06-29] MEDS ORDERED: LEVO.125 PO (23:44)
[2017-06-30 00:18] VITALS: BP 160/70; PULSE 69; RESP 18; O2SAT 100
[2017-06-30 00:22] LABS: AUTOMATED NEUTROPHIL # 5.4 TH/MM3 (1.8-7.7); BASOPHIL # 0.1 TH/MM3 (0-0.2); BASOPHIL % 0.6 % (0.0-2.0); EOSINOPHIL # 0.4 TH/MM3 (0-0.4); EOSINOPHIL % 3.6 % (0.0-4.0); HEMATOCRIT 34.4 % (35.0-46.0); HEMO FLAGS DIFF FINAL; LYMPH % 34.3 % (9.0-44.0); LYMPHOCYTE # 3.4 TH/MM3 (1.0-4.8); MEAN CORPUSCULAR HEMOGLOBIN 25.8 PG (27.0-34.0); MEAN CORPUSCULAR HGB CONC 33.6 % (32.0-36.0); MONO % 6.1 % (0.0-8.0); NEUT % 55.4 % (16.0-70.0); PLATELET COUNT 235 TH/MM3 (150-450); RED BLOOD COUNT 4.47 MIL/MM3 (4.00-5.30); RED CELL DISTRIBUTION WIDTH 14.7 % (11.6-17.2); WHITE BLOOD COUNT 9.8 TH/MM3 (4.0-11.0)
[2017-06-30 00:30] LABS: BLOOD, URINE NEG (NEG); COMMENT (UR) CULT NOT INDICATED; CULTURE IF INDICATED CULT NOT INDICATED; GLUCOSE,URINE NEG (NEG); KETONE, URINE NEG (NEG); NITRITE,URINE NEG (NEG); PH, URINE 5.5 (5.0-8.5); SQUAMOUS EPITHELIAL CELL URINE 1 /hpf (0-5); URINE COLOR LIGHT-YELLOW (YELLW/STRAW)
[2017-06-30 00:41] LABS: APTT (PATIENT) 28.3 SEC (24.3-30.1); PROTHROMBIN TIME - PATIENT 10.8 SEC (9.8-11.6)
[2017-06-30 00:48] LABS: ANION GAP 8 MEQ/L (5-15); AST (GOT) 27 U/L (15-37); BICARBONATE 26.7 MEQ/L (21.0-32.0); BLOOD UREA NITROGEN 26 MG/DL (7-18); CHLORIDE 102 MEQ/L (98-107); GLOMERULAR FILTRATION RATE 47 ML/MIN (>89); POTASSIUM 3.9 MEQ/L (3.5-5.1); SODIUM (NA) 137 MEQ/L (136-145)
[2017-06-30 00:50] LABS: ALT (GPT) 37 U/L (10-53)
[2017-06-30 00:52] LABS: ALKALINE PHOSPHATASE 134 U/L (45-117); TOTAL BILIRUBIN ADULT 0.4 MG/DL (0.2-1.0)
[2017-06-30] MEDS ORDERED: IOHEXOL 350 MG/ML 10 ML VIAL (for RAD DIAG) IVCONTRAST ONE (01:35)
--- NOTE | 2017-06-30 01:52 | RADRPT ---
EXAM DATE/TIME: 06/30/2017 01:23 [facility] COMPARISON: No previous studies available for comparison. INDICATIONS : Right upper quadrant pain x3 days. IV CONTRAST: 90 cc Omnipaque 350 (iohexol) IV ORAL CONTRAST: No oral contrast ingested. RADIATION DOSE: 12.88 CTDIvol (mGy) MEDICAL HISTORY : Congestive heart failure. Pancreatitis. Cardiovascular diseaseHypertension. Asthma. SURGICAL HISTORY : Tubal ligation. Hernia repair. ENCOUNTER: Initial ACUITY: 3 days PAIN SCALE: 6/10 LOCATION: Right upper quadrant TECHNIQUE: Volumetric scanning of the abdomen and pelvis was performed. Using automated exposure control and ad justment of the mA and/or kV according to patient size, radiation dose was kept as low as reasonably achievable to obtain optimal diagnostic quality images. DICOM format image data is available electro nically for review and comparison. FINDINGS: LOWER LUNGS: The visualized lower lungs are clear. LIVER: Homogeneous density without lesion. There is no dilation of the biliary tree. No calcified gallston es. SPLEEN: Normal size without lesion. PANCREAS: Within normal limits. KIDNEYS: Normal in size and shape. There is no mass, stone or hydronephrosis. ADRENAL GLANDS: Within normal limits. VASCULAR: There is no aortic aneurysm. BOWEL/MESENTERY: The stomach, small bowel, and colon demonstrate no acute abnormality. There is no free intraperitone al air or fluid. ABDOMINAL WALL: Within normal limits. RETROPERITONEUM: There is no lymphadenopathy. BLADDER: No wall thickening or mass. REPRODUCTIVE: Within normal limits. INGUINAL: There is no lymphadenopathy or hernia. Surgical clips left inguinal region related to previous surger y MUSCULOSKELETAL: Within normal limits for patient age. CONCLUSION: Normal examination. Surgical clips left inguinal region related to previous surgery. I did not see a normal or abnormal appendix Clayton Oliver MD on June 30, 2017 at 1:46 Board Certified Radiologist. This report was verified electronically.
[2017-06-30] MEDS ORDERED: ONDANSETRON HCL 4 MG/2 ML VIAL IV PUSH ONE (02:00)
[2017-06-30] MEDS ORDERED: SODIUM CHLORID 0.9% 500 ML INJ 500 ML IV ONE (02:00)
[2017-06-30] MEDS ORDERED: cefTRIAXone INJ 1,000 MG in SODIUM CHLORIDE 0.9% INJ 100 ML IV ONE (02:00)
[2017-06-30] MEDS ORDERED: KETOROLAC TROMETHAMINE 30 MG/ML (IVP) VIAL IV PUSH ONE (02:00)
[2017-06-30] MEDS ORDERED: HYDR-3516 PO (02:12)
[2017-06-30] MEDS ORDERED: CIPR-9 PO (02:12)
[2017-06-30 02:17] VITALS: BP 111/55; PULSE 72; RESP 16; O2SAT 97
== END 2017-06-30 02:52 | disposition home or self-care (01) ==
LOC: NEPC 22:13
DX: R10.11 Right upper quadrant pain (principal); N39.0 Urinary tract infection, site not specified; I10 Essential (primary) hypertension; E03.9 Hypothyroidism, unspecified; E78.00 Pure hypercholesterolemia, unspecified; G47.30 Sleep apnea, unspecified; Z79.82 Long term (current) use of aspirin; Z87.09 Personal history of other diseases of the respiratory system; Z86.59 Personal history of other mental and behavioral disorders; Z86.79 Personal history of other diseases of the circulatory system; Z87.19 Personal history of other diseases of the digestive system
CPT/HCPCS: 74177; 80053; 81001; 83605; 83690; 85025; 85610; 85730; 96365; 96375; 99285; J0696; J1885; J2405; J7040; Q9967

== ENCOUNTER 2017-12-03 19:45 | Emergency (ER) | payer MEDICAID ==
[~2017-12-03] VITALS: Ht 154.9 cm; Wt 100.0 kg
[~2017-12-03 19:45] MED LIST changes: +CIPR-9 PO; -CYMB30CA PO; -DICL75TA PO; -FAMO20TA2 PO; +HYDR-3516 PO; +LEVO.125 PO; -MACR100C2 PO; -subutex PO
[2017-12-03 20:00] VITALS: BP 185/77; PULSE 80; RESP 16; TEMP 98.3; O2SAT 97
--- NOTE | 2017-12-03 22:52 | RADRPT ---
EXAM DATE/TIME: 12/03/2017 22:41 [facility] COMPARISON: No previous studies available for comparison. INDICATIONS : Right mid shaft humerus pain, denies injury MEDICAL HISTORY : Congestive heart failure. Pancreatitis. Cardiovascular diseaseHypertension. Asthma SURGICAL HISTORY : Tubal ligation. Hernia repair ENCOUNTER: Initial ACUITY: 3 days PAIN SCORE: 7/10 LOCATION: Right Humerus FINDINGS: There is no evidence of fracture or destructive change. No periosteal elevation. There is arthritic c hange in the right shoulder. Soft tissues grossly unremarkable. CONCLUSION: No acute bony findings Tom Isaacs MD on December 03, 2017 at 22:49 Board Certified Radiologist. This report was verified electronically.
[2017-12-03] MEDS ORDERED: oxyCODONE/ACETAMINOPHEN 5 MG/325 MG TAB PO ONE (23:00)
--- NOTE | 2017-12-03 23:53 | RADRPT ---
EXAM DATE/TIME: 12/03/2017 23:20 [facility] COMPARISON: No previous studies available for comparison. INDICATIONS : Right arm pain. MEDICAL HISTORY : Hypercholesterolemia. Hypertension. Congestive heart failure. Hypothyroidism. Anticoagulant therapy. Irregular heartbeat. Sleep apnea. Asthma. Pancreatitis. Cholelithiasis. . Depression. Anxiet y. SURGICAL HISTORY : Hernia repair. Bilateral knee replacement. Sinus surgery. ENCOUNTER: Initial ACUITY: 1 day PAIN SCORE: 4/10 LOCATION: Right arm. FINDINGS: There is spontaneous flow documented in the brachial, basilic, cephalic, axillary, and subclavian vei ns. The vessels are compressible and augmentation response is documented. No filling defects are se en. The flow is phasic with respiration. Direction of flow in the jugular vein is caudal. CONCLUSION: Normal examination. Huy Grier Jr., MD on December 03, 2017 at 23:51 Board Certified Radiologist. This report was verified electronically.
--- NOTE | 2017-12-04 00:07 | PD ---
HPI Chief Complaint: Pain: Acute or Chronic Time Seen by Provider: 22:07 Travel History International Travel<30 days: No Contact w/Intl Traveler<30days: No Traveled to known affect area: No History of Present Illness HPI 62-year-old female complains of pain in the right humerus distribution. She denies injury. She denies excessive use. She reports coughing sometimes worsens the pain in the whole arm. She's had no fever no similar prior event. She takes hydrocodone for chronic arthritic pain and reports no improvement with that. She denies a history of DVT. She reports no improvement with ibuprofen. No pain elsewhere. PFSH Past Medical History Hx Anticoagulant Therapy: Yes (2 baby aspirin BID) Asthma: Yes Anxiety: Yes Depression: Yes Heart Rhythm Problems: Yes Cardiac Catheterization: Yes Cardiovascular Problems: Yes (HTN) High Cholesterol: Yes Congestive Heart Failure: Yes Diabetes: No Diminished Hearing: No Gastrointestinal Disorders: Yes (GALLSTONES) Headaches: Yes Hypertension: Yes Inguinal Hernia: Yes Respiratory: Yes (Asthma) Pancreatitis: Yes Sleep Apnea: Yes Thyroid Disease: Yes (HYPOTHYROIDISM) Menopausal: Yes : 3 Para: 2 Tubal Ligation: Yes Past Surgical History Abdominal Surgery: Yes (HERNIA REPAIR) Joint Replacement: Yes (BILATERAL KNEE REPLACEMENT) Other Surgery: Yes (SINUS SURGERY) Social History Alcohol Use: No Tobacco Use: No Substance Use: No Allergies-Medications (Allergen,Severity, Reaction): Coded Allergies: No Known Allergies (Unverified Adverse Reaction, Unknown, 12/03/17) Reported Meds & Prescriptions Reported Meds & Active Scripts Active Hydrocodone-Acetaminophen 5-325 mg Tab 1 Tab PO Q6H PRN Reported Synthroid (Levothyroxine Sodium) 125 Mcg Tab 125 Mcg PO DAILY Aspirin 81 Mg Chew 162 Mg CHEW BID Prozac (Fluoxetine HCl) 20 Mg Cap 60 Mg PO HS Lisinopril 20 Mg Tab 20 Mg PO BID Review of Systems Except as stated in HPI: all other systems reviewed are Neg General / Constitutional: No: Fever Eyes: No: Diploplia Physical Exam Narrative GENERAL: 62-year-old female well-nourished well-developed mild distress Vital Signs Date Time Temp Pulse Resp B/P (MAP) Pulse Ox O2 Delivery O2 Flow Rate FiO2 12/03/17 20:00 98.3 80 16 185/77 (113) 97 SKIN: Warm and dry. HEAD: Atraumatic. Normocephalic. EYES: Pupils equal and round. No scleral icterus. No injection or drainage. ENT: No nasal bleeding or discharge. Mucous membranes pink and moist. NECK: Trachea midline. No JVD. CARDIOVASCULAR: Regular rate and rhythm. RESPIRATORY: No accessory muscle use. Clear to auscultation. Breath sounds equal bilaterally. GASTROINTESTINAL: Abdomen soft, non-tender, nondistended. Hepatic and splenic margins not palpable. MUSCULOSKELETAL: No gross deformity overlying the right humerus and right elbow or right shoulder. Range of motion is normal. Radial artery pulses 2+ bilaterally. Hand electrical and instrumentation manager is equal bilaterally. Radial, median and ulnar nerve sensation is normal. NEUROLOGICAL: Awake and alert. No obvious cranial nerve deficits. Motor grossly within normal limits. Five out of 5 muscle strength in the arms and legs. Normal speech. PSYCHIATRIC: Appropriate mood and affect; insight and judgment normal. Data Data Last Documented VS Vital Signs Date Time Temp Pulse Resp B/P (MAP) Pulse Ox O2 Delivery O2 Flow Rate FiO2 12/03/17 20:00 98.3 80 16 185/77 (113) 97 Vital signs reviewed Orders Orders Humerus (Min 2vws) (12/03/17 22:30) Ice/Cold Pack (12/03/17 22:30) Us Arm Venous Doppler (12/03/17 ) Oxycodone-Acetamin 5-325 Mg (Percocet (12/03/17 23:00) Ed Discharge Order (12/04/17 00:07) [facility] Medical Decision Making Medical Screen Exam Complete: Yes Emergency Medical Condition: Yes Medical Record Reviewed: Yes Differential Diagnosis Tendinitis, bursitis, DVT, fracture, arthritis Narrative Course Last Impressions Humerus X-Ray 12/03/172229 Signed Impressions: Service Date/Time: November 22:41 - CONCLUSION: No acute bony findings Tom Isaacs MD US: No DVT Bursitis and/or tendinitis is a consideration. Pain controlled here with Percocet. Follow-up with primary care. Patient is ready for discharge. Diagnosis Primary Impression: Arm pain Qualified Codes: M79.601 - Pain in right arm Referrals: Primary Care Physician 2 days Med/Other Pt SpecificInfo: Prescription(s) given Disposition: DISCHARGE HOME Condition: Stable Mina Short MD Dec 04, 2017 00:07
== END 2017-12-04 00:47 | disposition home or self-care (01) ==
LOC: NEPD 19:45
DX: M79.601 Pain in right arm (principal); I10 Essential (primary) hypertension; E03.9 Hypothyroidism, unspecified; E78.00 Pure hypercholesterolemia, unspecified; F41.8 Other specified anxiety disorders; G47.30 Sleep apnea, unspecified; Z79.82 Long term (current) use of aspirin; Z87.09 Personal history of other diseases of the respiratory system; Z86.79 Personal history of other diseases of the circulatory system; Z87.19 Personal history of other diseases of the digestive system
CPT/HCPCS: 73060; 93971